=== PATIENT | male | born 1955 | race Two or more races ===

== ENCOUNTER 2018-04-05 07:18 | Outpatient (CLI) | payer OTHER ==
[~2018-04-05 07:18] MED LIST: CIPRO500 MG PO; COZAAR50 MG PO; FLAGYL500MG PO; NABUMETONE500 MG PO; PERCOCET 5/3251 TAB PO; PROTONIX40 MG PO; TRICOR145 MG PO
== END 2018-04-05 07:34 | disposition home or self-care (01) ==
LOC: LAB 07:18
DX: I11.9 Hypertensive heart disease without heart failure (principal); E78.00 Pure hypercholesterolemia, unspecified; E11.9 Type 2 diabetes mellitus without complications

== ENCOUNTER 2018-05-23 08:26 | Outpatient (CLI) | payer OTHER | END 2018-05-23 08:35 | disposition home or self-care (01) | LOC: LAB 08:26 | DX: R97.21 Rising PSA following treatment for malignant neoplasm of prostate (principal) ==

== ENCOUNTER → 2018-07-23 09:05 | Outpatient (CLI) | payer OTHER | END | disposition home or self-care (01) | LOC: LAB 09:05 | DX: I11.9 Hypertensive heart disease without heart failure (principal); E78.2 Mixed hyperlipidemia; E11.9 Type 2 diabetes mellitus without complications ==

== ENCOUNTER 2018-10-16 13:19 | Outpatient (CLI) | payer OTHER | END 2018-10-16 15:15 | disposition home or self-care (01) | LOC: SONOGRAMA 13:19 | DX: N20.0 Calculus of kidney (principal); R10.10 Upper abdominal pain, unspecified ==

== ENCOUNTER 2018-10-16 13:31 | Outpatient (CLI) | payer OTHER | END 2018-10-16 15:15 | disposition home or self-care (01) | LOC: LAB 13:31 | DX: D72.821 Monocytosis (symptomatic) (principal) ==

== ENCOUNTER 2019-04-08 06:59 | Outpatient (CLI) | payer OTHER | END 2019-04-08 07:08 | disposition home or self-care (01) | LOC: LAB 06:59 | DX: I11.9 Hypertensive heart disease without heart failure (principal); E78.00 Pure hypercholesterolemia, unspecified ==

== ENCOUNTER → 2019-05-12 07:25 | Outpatient (CLI) | payer OTHER | END | disposition home or self-care (01) | LOC: LAB 07:25 | DX: I10 Essential (primary) hypertension (principal); Z11.4 Encounter for screening for human immunodeficiency virus [HIV] ==

== ENCOUNTER 2019-08-22 11:03 | Outpatient (CLI) | payer OTHER | END 2019-08-22 15:00 | disposition home or self-care (01) | LOC: LAB 11:03 | DX: E83.51 Hypocalcemia (principal); E11.65 Type 2 diabetes mellitus with hyperglycemia ==

== ENCOUNTER 2019-08-27 13:10 | Outpatient (CLI) | payer OTHER | END 2019-08-27 13:16 | disposition home or self-care (01) | LOC: SONOGRAMA 13:10 | DX: M25.512 Pain in left shoulder (principal) ==

== ENCOUNTER 2019-10-21 07:43 | Outpatient (CLI) | payer OTHER | END 2019-10-21 18:00 | disposition home or self-care (01) | LOC: LAB 07:43 | DX: D72.821 Monocytosis (symptomatic) (principal) ==

== ENCOUNTER 2019-12-09 09:16 | Outpatient (CLI) | payer OTHER | END 2019-12-09 15:00 | disposition home or self-care (01) | LOC: LAB 09:16 | DX: E11.65 Type 2 diabetes mellitus with hyperglycemia (principal); D72.821 Monocytosis (symptomatic) ==

== ENCOUNTER → 2019-12-12 | Outpatient (CLI) | payer OTHER | END | disposition home or self-care (01) | LOC: LAB 08:51 | DX: R97.21 Rising PSA following treatment for malignant neoplasm of prostate (principal) ==

== ENCOUNTER → 2020-04-19 08:21 | Outpatient (CLI) | payer OTHER | END | disposition home or self-care (01) | LOC: LAB 08:21 | PROVIDERS: ATTEND Internal Medicine Endocrinology, Diabetes & Metabolism | DX: E78.00 Pure hypercholesterolemia, unspecified (principal); E11.65 Type 2 diabetes mellitus with hyperglycemia ==

== ENCOUNTER 2020-04-23 07:40 | Outpatient (CLI) | payer OTHER | END 2020-04-23 07:53 | disposition home or self-care (01) | LOC: LAB 07:40 | PROVIDERS: ATTEND Internal Medicine Cardiovascular Disease | DX: E03.8 Other specified hypothyroidism (principal); E11.9 Type 2 diabetes mellitus without complications; E78.00 Pure hypercholesterolemia, unspecified ==

== ENCOUNTER 2020-08-21 09:47 | Outpatient (CLI) | payer OTHER | END 2020-08-21 13:46 | disposition home or self-care (01) | LOC: LAB 09:47 | DX: B35.1 Tinea unguium (principal); L60.0 Ingrowing nail; L03.032 Cellulitis of left toe ==

== ENCOUNTER 2020-10-02 10:09 | Outpatient (CLI) | payer OTHER | END 2020-10-02 15:00 | disposition home or self-care (01) | LOC: LAB 10:09 | PROVIDERS: ATTEND Podiatrist Foot & Ankle Surgery | DX: B35.1 Tinea unguium (principal) ==

== ENCOUNTER 2020-10-11 07:36 | Outpatient (CLI) | payer OTHER | END 2020-10-11 07:49 | disposition home or self-care (01) | LOC: LAB 07:36 | PROVIDERS: ATTEND Podiatrist Foot & Ankle Surgery | DX: B35.1 Tinea unguium (principal) ==

== ENCOUNTER → 2020-10-20 09:08 | Outpatient (CLI) | payer OTHER | END | disposition home or self-care (01) | LOC: LAB 09:08 | PROVIDERS: ATTEND Internal Medicine Cardiovascular Disease | DX: I11.9 Hypertensive heart disease without heart failure (principal); E78.00 Pure hypercholesterolemia, unspecified; E11.9 Type 2 diabetes mellitus without complications ==

== ENCOUNTER 2020-10-25 06:53 | Outpatient (CLI) | payer OTHER | END 2020-10-25 15:00 | disposition home or self-care (01) | LOC: LAB 06:53 | PROVIDERS: ATTEND Internal Medicine Hematology & Oncology | DX: D72.821 Monocytosis (symptomatic) (principal) ==

== ENCOUNTER 2020-11-13 12:17 | Outpatient (CLI) | payer OTHER | END 2020-11-13 15:00 | disposition home or self-care (01) | LOC: LAB 12:17 | PROVIDERS: ATTEND Podiatrist Foot & Ankle Surgery | DX: B35.1 Tinea unguium (principal) ==

== ENCOUNTER 2020-12-20 10:13 | Outpatient (CLI) | payer OTHER | END 2020-12-20 10:24 | disposition home or self-care (01) | LOC: LAB 10:13 | PROVIDERS: ATTEND Urology | DX: R97.21 Rising PSA following treatment for malignant neoplasm of prostate (principal) ==

== ENCOUNTER 2021-01-24 09:04 | Outpatient (CLI) | payer OTHER | END 2021-01-24 09:13 | disposition home or self-care (01) | LOC: LAB 09:04 | PROVIDERS: ATTEND Internal Medicine Cardiovascular Disease | DX: I11.9 Hypertensive heart disease without heart failure (principal); E78.1 Pure hyperglyceridemia; E11.9 Type 2 diabetes mellitus without complications ==

== ENCOUNTER 2021-06-21 13:57 | Outpatient (CLI) | payer OTHER | END 2021-06-21 14:18 | disposition home or self-care (01) | LOC: MRI 13:57 | PROVIDERS: ATTEND Orthopaedic Surgery | DX: M54.2 Cervicalgia (principal); M54.5 Low back pain | CPT/HCPCS: 72141; 72148 ==

== ENCOUNTER 2021-07-08 08:24 | Outpatient (CLI) | payer OTHER | END 2021-07-08 08:29 | disposition home or self-care (01) | LOC: SONOGRAMA 08:24 | PROVIDERS: ATTEND Physical Medicine & Rehabilitation | DX: S46.301A Unspecified injury of muscle, fascia and tendon of triceps, right arm, initial encounter (principal) ==

== ENCOUNTER 2021-07-22 07:14 | Outpatient (CLI) | payer OTHER | END 2021-07-22 07:27 | disposition home or self-care (01) | LOC: LAB 07:14 | PROVIDERS: ATTEND Internal Medicine Cardiovascular Disease | DX: E11.9 Type 2 diabetes mellitus without complications (principal); E78.1 Pure hyperglyceridemia; D11.9 Benign neoplasm of major salivary gland, unspecified ==

== ENCOUNTER 2021-08-02 12:47 | Outpatient (CLI) | payer OTHER | END 2021-08-02 13:01 | disposition home or self-care (01) | LOC: MRI 12:47 | DX: M48.02 Spinal stenosis, cervical region (principal); M54.12 Radiculopathy, cervical region | CPT/HCPCS: 72141 ==

== ENCOUNTER 2021-11-08 07:26 | Outpatient (CLI) | payer OTHER | END 2021-11-08 07:32 | disposition home or self-care (01) | LOC: LAB 07:26 | DX: I10 Essential (primary) hypertension (principal); D72.821 Monocytosis (symptomatic) ==

== ENCOUNTER 2021-12-06 09:45 | Outpatient (CLI) | payer OTHER | END 2021-12-06 09:55 | disposition home or self-care (01) | LOC: LAB 09:45 | PROVIDERS: ATTEND Internal Medicine Cardiovascular Disease | DX: I11.9 Hypertensive heart disease without heart failure (principal); E78.1 Pure hyperglyceridemia; E11.9 Type 2 diabetes mellitus without complications ==

== ENCOUNTER 2022-01-04 10:37 | Outpatient (CLI) | payer OTHER | END 2022-01-04 15:13 | disposition home or self-care (01) | LOC: LAB 10:37 | PROVIDERS: ATTEND Urology | DX: R97.21 Rising PSA following treatment for malignant neoplasm of prostate (principal) ==

== ENCOUNTER 2022-02-01 06:36 | Outpatient (CLI) | payer OTHER | END 2022-02-01 06:47 | disposition home or self-care (01) | LOC: LAB 06:36 | PROVIDERS: ATTEND Internal Medicine Cardiovascular Disease | DX: E78.1 Pure hyperglyceridemia (principal); E11.9 Type 2 diabetes mellitus without complications; E03.2 Hypothyroidism due to medicaments and other exogenous substances ==

== ENCOUNTER 2022-09-09 07:44 | Outpatient (CLI) | payer OTHER | END 2022-09-09 07:45 | disposition home or self-care (01) | LOC: LAB 07:44 | PROVIDERS: ATTEND Internal Medicine Cardiovascular Disease | DX: I11.9 Hypertensive heart disease without heart failure (principal); E78.1 Pure hyperglyceridemia ==

== ENCOUNTER → 2023-01-09 10:02 | Outpatient (CLI) | payer OTHER | END | disposition home or self-care (01) | LOC: LAB 10:02 | PROVIDERS: ATTEND Internal Medicine Cardiovascular Disease | DX: I11.9 Hypertensive heart disease without heart failure (principal); E11.9 Type 2 diabetes mellitus without complications; N39.0 Urinary tract infection, site not specified ==

== ENCOUNTER 2023-03-03 09:01 | Outpatient (CLI) | payer OTHER | END 2023-03-03 09:10 | disposition home or self-care (01) | LOC: LAB 09:01 | PROVIDERS: ATTEND Urology | DX: R97.21 Rising PSA following treatment for malignant neoplasm of prostate (principal) ==

== ENCOUNTER 2023-07-03 06:32 | Outpatient (CLI) | payer OTHER | END 2023-07-03 06:34 | disposition home or self-care (01) | LOC: LAB 06:32 | PROVIDERS: ATTEND Internal Medicine Cardiovascular Disease | DX: I11.9 Hypertensive heart disease without heart failure (principal); E78.1 Pure hyperglyceridemia; E11.9 Type 2 diabetes mellitus without complications ==

== ENCOUNTER → 2023-09-24 06:55 | Outpatient (CLI) | payer OTHER ==
[2023-09-24 07:46] LABS: HEMATOCRIT 41.3 % (39.0-48.0); MEAN CELL VOLUME 90.8 fL (80.0-100.00); MEAN CORPUSCULAR HEMOGLOBIN 30.8 pg (27.00-32.0); MEAN CORPUSCULAR HGB CONC 33.9 g/dl (32.0-36.0); PLATELET COUNT 340 K/uL (150-450); RED BLOOD COUNT 4.55 M/uL (4.00-6.00); RED CELL DISTRIBUTION WIDTH 13.5 % (11.5-14.5)
[2023-09-24 08:15] LABS: ALBUMIN 3.2 gm/dL (3.4-5.0); BILIRUBIN TOTAL 0.4 mg/dL (0.3-1.2); CALCIUM 8.5 mg/dL (8.5-10.1); CHOL HDL RATIO 2.5 (0-5.0); CREATININE SERUM 0.71 mg/dL (0.70-1.30); GLOBULINA 3.4 G/DL (2.4-3.5); POTASSIUM 3.69 mEq/L (3.5-5.1); TOTAL PROTEIN 6.6 gm/dL (6.4-8.2)
== END | disposition home or self-care (01) ==
LOC: LAB 06:55
PROVIDERS: ATTEND Internal Medicine
DX: E11.65 Type 2 diabetes mellitus with hyperglycemia (principal); I10 Essential (primary) hypertension; E78.5 Hyperlipidemia, unspecified

== ENCOUNTER 2023-12-29 07:53 | Outpatient (CLI) | payer OTHER ==
[2023-12-29 09:57] LABS: HEMATOCRIT 42.6 % (39.0-48.0); HEMOGLOBIN 14.1 g/dL (13-16.00); MEAN CELL VOLUME 92.3 fL (80.0-100.00); MEAN CORPUSCULAR HEMOGLOBIN 30.6 pg (27.00-32.0); MEAN CORPUSCULAR HGB CONC 33.2 g/dl (32.0-36.0); PLATELET COUNT 309 K/uL (150-450); RED BLOOD COUNT 4.61 M/uL (4.00-6.00); RED CELL DISTRIBUTION WIDTH 13.6 % (11.5-14.5)
[2023-12-29 09:58] LABS: PH,URINE 5.5 (5.0-8.0); URINE APPEARANCE Clear; URINE BILIRRUBIN Negative (NEGATIVE); URINE BLOOD Negative; URINE COLOR Yellow; URINE GLUCOSE Negative (NEGATIVE); URINE LEUKOCYTE Negative; URINE NITRATE Negative; URINE PROTEIN Negative (NEGATIVE)
[2023-12-29 10:00] LABS: URINE BACTERIA 7.5 uL (0.0-1933); URINE EPITHELIAL CELLS 1.5 uL (0.0-38.8); URINE RBC 3.4 uL (0.0-20.8)
[2023-12-29 10:20] LABS: URINE WBC 1.6 uL (0.0-23.2)
[2023-12-29 10:33] LABS: ALBUMIN 3.5 gm/dL (3.4-5.0); BILIRUBIN TOTAL 0.36 mg/dL (0.3-1.2); CALCIUM 8.8 mg/dL (8.5-10.1); CHOL HDL RATIO 2.7 (0-5.0); CREATININE SERUM 0.76 mg/dL (0.70-1.30); GFR 101.69; GLOBULINA 2.9 G/DL (2.4-3.5); POTASSIUM 3.88 mEq/L (3.5-5.1); PROSTATIC SPECIFIC ANTIGEN 1.38 NG/ML (0.010-4.00); TOTAL PROTEIN 6.4 gm/dL (6.4-8.2); TSH 2.42 uIU/mL (0.358-3.74)
== END 2023-12-29 08:00 | disposition home or self-care (01) ==
LOC: LAB 07:53
PROVIDERS: ATTEND Internal Medicine Cardiovascular Disease
DX: E11.9 Type 2 diabetes mellitus without complications (principal); E78.2 Mixed hyperlipidemia; E03.9 Hypothyroidism, unspecified; N40.0 Benign prostatic hyperplasia without lower urinary tract symptoms; I10 Essential (primary) hypertension; E78.5 Hyperlipidemia, unspecified

== ENCOUNTER → 2024-01-21 07:37 | Outpatient (CLI) | payer OTHER ==
[2024-01-21 08:18] LABS: HEMATOCRIT 41.5 % (39.0-48.0); HEMOGLOBIN 14.5 g/dL (13-16.00); MEAN CELL VOLUME 91.6 fL (80.0-100.00); MEAN CORPUSCULAR HEMOGLOBIN 31.9 pg (27.00-32.0); MEAN CORPUSCULAR HGB CONC 34.9 g/dl (32.0-36.0); PLATELET COUNT 295 K/uL (150-450); RED BLOOD COUNT 4.54 M/uL (4.00-6.00); RED CELL DISTRIBUTION WIDTH 13.9 % (11.5-14.5)
[2024-01-21 08:34] LABS: URINE APPEARANCE Clear; URINE BILIRRUBIN Negative (NEGATIVE); URINE BLOOD Negative; URINE COLOR Yellow; URINE GLUCOSE Negative (NEGATIVE); URINE LEUKOCYTE Negative; URINE NITRATE Negative; URINE PROTEIN Negative (NEGATIVE)
[2024-01-21 08:38] LABS: URINE BACTERIA 8.8 uL (0.0-1933); URINE EPITHELIAL CELLS 2.7 uL (0.0-38.8); URINE RBC 10.4 uL (0.0-20.8); URINE WBC 7.1 uL (0.0-23.2)
[2024-01-21 09:10] LABS: ALBUMIN 3.8 gm/dL (3.4-5.0); BILIRUBIN TOTAL 0.46 mg/dL (0.3-1.2); CALCIUM 9.2 mg/dL (8.5-10.1); CREATININE SERUM 0.74 mg/dL (0.70-1.30); GFR 104.87; GLOBULINA 2.7 G/DL (2.4-3.5); PHOSPHOROUS 2.9 mg/dL (2.5-4.9); POTASSIUM 3.82 mEq/L (3.5-5.1); PROSTATIC SPECIFIC ANTIGEN 1.64 NG/ML (0.010-4.00); T4 TOTAL 8.81 UG/DL (4.5-12.1); TOTAL PROTEIN 6.5 gm/dL (6.4-8.2); TSH 1.89 uIU/mL (0.358-3.74)
== END | disposition home or self-care (01) ==
LOC: LAB 07:37
PROVIDERS: ATTEND Internal Medicine
DX: I10 Essential (primary) hypertension (principal); Z01.810 Encounter for preprocedural cardiovascular examination; E03.9 Hypothyroidism, unspecified; E78.9 Disorder of lipoprotein metabolism, unspecified; E55.9 Vitamin D deficiency, unspecified; E11.51 Type 2 diabetes mellitus with diabetic peripheral angiopathy without gangrene; E11.9 Type 2 diabetes mellitus without complications; E66.8 Other obesity; Z12.11 Encounter for screening for malignant neoplasm of colon; M89.9 Disorder of bone, unspecified; N40.0 Benign prostatic hyperplasia without lower urinary tract symptoms

== ENCOUNTER 2024-01-23 11:22 | Outpatient (CLI) | payer OTHER ==
[2024-01-23 12:12] LABS: ob NEGATIVE (NEGATIVE)
== END 2024-01-23 13:15 | disposition home or self-care (01) ==
LOC: LAB 11:22
PROVIDERS: ATTEND Internal Medicine
DX: I10 Essential (primary) hypertension (principal); Z01.810 Encounter for preprocedural cardiovascular examination; E03.9 Hypothyroidism, unspecified; E78.9 Disorder of lipoprotein metabolism, unspecified; E55.9 Vitamin D deficiency, unspecified; E11.51 Type 2 diabetes mellitus with diabetic peripheral angiopathy without gangrene; E11.9 Type 2 diabetes mellitus without complications; E66.8 Other obesity; Z12.11 Encounter for screening for malignant neoplasm of colon; M89.9 Disorder of bone, unspecified; Z12.31 Encounter for screening mammogram for malignant neoplasm of breast; Z13.820 Encounter for screening for osteoporosis; N40.0 Benign prostatic hyperplasia without lower urinary tract symptoms

== ENCOUNTER 2024-01-23 11:32 | Outpatient (CLI) | payer OTHER | END 2024-01-23 12:00 | disposition home or self-care (01) | LOC: RAD 11:32 | PROVIDERS: ATTEND Internal Medicine | DX: Z01.810 Encounter for preprocedural cardiovascular examination (principal) ==

== ENCOUNTER 2024-07-19 13:28 | Outpatient (CLI) | payer OTHER ==
[2024-07-19 13:52] LABS: URINE APPEARANCE Clear; URINE BILIRRUBIN Negative (NEGATIVE); URINE BLOOD Negative; URINE COLOR Yellow; URINE GLUCOSE Negative (NEGATIVE); URINE KETONE Trace (NEGATIVE); URINE LEUKOCYTE Negative; URINE NITRATE Negative; URINE PROTEIN Trace (NEGATIVE); URINE UROBILINOGEN 0.2 E.U./dl
[2024-07-19 13:53] LABS: URINE EPITHELIAL CELLS 5.7 uL (0.0-38.8); URINE RBC 11.1 uL (0.0-20.8); URINE WBC 8.4 uL (0.0-23.2)
[2024-07-19 14:06] LABS: URINE BACTERIA 3.7 uL (0.0-1933); URINE CAST 0.61 uL (0.0-1.40)
== END 2024-07-19 13:35 | disposition home or self-care (01) ==
LOC: LAB 13:28
PROVIDERS: ATTEND Urology
DX: R97.21 Rising PSA following treatment for malignant neoplasm of prostate (principal)

== ENCOUNTER 2024-07-28 07:07 | Outpatient (CLI) | payer OTHER ==
[2024-07-28 07:38] LABS: PH,URINE 5.5 (5.0-8.0); URINE APPEARANCE Clear; URINE BILIRRUBIN Negative (NEGATIVE); URINE BLOOD Negative; URINE COLOR Yellow; URINE GLUCOSE Negative (NEGATIVE); URINE KETONE Negative (NEGATIVE); URINE LEUKOCYTE Negative; URINE NITRATE Negative; URINE PROTEIN Negative (NEGATIVE); URINE UROBILINOGEN 0.2 E.U./dl
[2024-07-28 07:40] LABS: URINE BACTERIA 13.8 uL (0.0-1933); URINE RBC 4.7 uL (0.0-20.8); URINE WBC 6.3 uL (0.0-23.2)
[2024-07-28 08:00] LABS: HEMATOCRIT 43.4 % (39.0-48.0); HEMOGLOBIN 14.6 g/dL (13-16.00); MEAN CELL VOLUME 91.8 fL (80.0-100.00); MEAN CORPUSCULAR HEMOGLOBIN 30.8 pg (27.00-32.0); MEAN CORPUSCULAR HGB CONC 33.6 g/dl (32.0-36.0); PLATELET COUNT 318 K/uL (150-450); RED BLOOD COUNT 4.72 M/uL (4.00-6.00); RED CELL DISTRIBUTION WIDTH 13.4 % (11.5-14.5)
[2024-07-28 08:42] LABS: ALBUMIN 3.4 gm/dL (3.4-5.0); BILIRUBIN TOTAL 0.4 mg/dL (0.3-1.2); CALCIUM 8.7 mg/dL (8.5-10.1); CHOL HDL RATIO 3.8 (0-5.0); CREATININE SERUM 0.75 mg/dL (0.70-1.30); GFR 102.96; POTASSIUM 4.19 mEq/L (3.5-5.1); TOTAL PROTEIN 6.4 gm/dL (6.4-8.2)
== END 2024-07-28 07:13 | disposition home or self-care (01) ==
LOC: LAB 07:07
PROVIDERS: ATTEND Internal Medicine
DX: E78.9 Disorder of lipoprotein metabolism, unspecified (principal); I10 Essential (primary) hypertension; E55.9 Vitamin D deficiency, unspecified; E11.51 Type 2 diabetes mellitus with diabetic peripheral angiopathy without gangrene; E11.9 Type 2 diabetes mellitus without complications; Z12.11 Encounter for screening for malignant neoplasm of colon; M89.9 Disorder of bone, unspecified; Z12.31 Encounter for screening mammogram for malignant neoplasm of breast; Z13.820 Encounter for screening for osteoporosis; R73.09 Other abnormal glucose; R73.01 Impaired fasting glucose

== ENCOUNTER → 2024-10-24 08:02 | Outpatient (CLI) | payer OTHER ==
[2024-10-24 09:05] LABS: HEMOGLOBIN 14.5 g/dL (13-16.00); MEAN CELL VOLUME 90.9 fL (80.0-100.00); MEAN CORPUSCULAR HEMOGLOBIN 31.4 pg (27.00-32.0); MEAN CORPUSCULAR HGB CONC 34.5 g/dl (32.0-36.0); PLATELET COUNT 301 K/uL (150-450); RED BLOOD COUNT 4.62 M/uL (4.00-6.00)
[2024-10-24 09:12] LABS: PH,URINE 5.5 (5.0-8.0); URINE APPEARANCE Clear; URINE BILIRRUBIN Negative (NEGATIVE); URINE BLOOD Negative; URINE COLOR Yellow; URINE GLUCOSE Negative (NEGATIVE); URINE KETONE Negative (NEGATIVE); URINE LEUKOCYTE Negative; URINE NITRATE Negative; URINE PROTEIN Negative (NEGATIVE); URINE UROBILINOGEN 0.2 E.U./dl
[2024-10-24 09:17] LABS: URINE BACTERIA 35.4 uL (0.0-1933); URINE EPITHELIAL CELLS 2.2 uL (0.0-38.8); URINE RBC 4.1 uL (0.0-20.8); URINE WBC 6.7 uL (0.0-23.2)
[2024-10-24 09:22] LABS: URINE CAST 0.14 uL (0.0-1.40)
[2024-10-24 10:22] LABS: ALBUMIN 3.5 gm/dL (3.4-5.0); BILIRUBIN TOTAL 0.44 mg/dL (0.3-1.2); CALCIUM 8.9 mg/dL (8.5-10.1); CHOL HDL RATIO 2.2 (0-5.0); CREATININE SERUM 0.77 mg/dL (0.70-1.30); GFR 99.88; POTASSIUM 3.97 mEq/L (3.5-5.1); T4 FREE 0.94 NG/ML (0.76-1.46); TOTAL PROTEIN 6.5 gm/dL (6.4-8.2); TSH 1.7 uIU/mL (0.358-3.74)
== END | disposition home or self-care (01) ==
LOC: LAB 08:02
PROVIDERS: ATTEND Internal Medicine
DX: E11.65 Type 2 diabetes mellitus with hyperglycemia (principal); E03.9 Hypothyroidism, unspecified; E78.5 Hyperlipidemia, unspecified; I10 Essential (primary) hypertension; N30.90 Cystitis, unspecified without hematuria; E11.21 Type 2 diabetes mellitus with diabetic nephropathy

== ENCOUNTER → 2024-12-02 07:04 | Outpatient (CLI) | payer OTHER ==
[2024-12-02 07:26] LABS: HEMATOCRIT 42.1 % (39.0-48.0); HEMOGLOBIN 14.4 g/dL (13-16.00); MEAN CELL VOLUME 90.5 fL (80.0-100.00); MEAN CORPUSCULAR HEMOGLOBIN 30.9 pg (27.00-32.0); MEAN CORPUSCULAR HGB CONC 34.2 g/dl (32.0-36.0); PLATELET COUNT 275 K/uL (150-450); RED BLOOD COUNT 4.66 M/uL (4.00-6.00); RED CELL DISTRIBUTION WIDTH 13.7 % (11.5-14.5)
[2024-12-02 07:54] LABS: URINE APPEARANCE Clear; URINE BILIRRUBIN Negative (NEGATIVE); URINE BLOOD Negative; URINE COLOR Yellow; URINE GLUCOSE Negative (NEGATIVE); URINE KETONE Trace (NEGATIVE); URINE LEUKOCYTE Negative; URINE NITRATE Negative; URINE PROTEIN Negative (NEGATIVE)
[2024-12-02 07:58] LABS: URINE BACTERIA 48.9 uL (0.0-1933); URINE EPITHELIAL CELLS 10.2 uL (0.0-38.8); URINE RBC 5.7 uL (0.0-20.8); URINE WBC 7.7 uL (0.0-23.2)
[2024-12-02 08:21] LABS: ALBUMIN 3.6 gm/dL (3.4-5.0); BILIRUBIN TOTAL 0.49 mg/dL (0.3-1.2); CALCIUM 8.8 mg/dL (8.5-10.1); CHOL HDL RATIO 2.1 (0-5.0); CREATININE SERUM 0.73 mg/dL (0.70-1.30); GFR 106.22; GLOBULINA 2.7 G/DL (2.4-3.5); POTASSIUM 3.94 mEq/L (3.5-5.1); TOTAL PROTEIN 6.3 gm/dL (6.4-8.2)
[2024-12-02 08:25] LABS: URINE CAST 0.29 uL (0.0-1.40)
== END | disposition home or self-care (01) ==
LOC: LAB 07:04
PROVIDERS: ATTEND Internal Medicine
DX: E78.9 Disorder of lipoprotein metabolism, unspecified (principal); I10 Essential (primary) hypertension; E55.9 Vitamin D deficiency, unspecified; E11.51 Type 2 diabetes mellitus with diabetic peripheral angiopathy without gangrene; E11.9 Type 2 diabetes mellitus without complications; Z12.11 Encounter for screening for malignant neoplasm of colon; M89.9 Disorder of bone, unspecified; Z12.31 Encounter for screening mammogram for malignant neoplasm of breast; Z13.820 Encounter for screening for osteoporosis; R73.09 Other abnormal glucose; R73.01 Impaired fasting glucose

== ENCOUNTER 2025-03-16 09:42 | Outpatient (CLI) | payer OTHER ==
[2025-03-16 10:50] LABS: PH,URINE 5.5 (5.0-8.0); URINE APPEARANCE Clear; URINE BILIRRUBIN Negative (NEGATIVE); URINE BLOOD Negative; URINE COLOR Yellow; URINE GLUCOSE Negative (NEGATIVE); URINE KETONE Trace (NEGATIVE); URINE LEUKOCYTE Negative; URINE NITRATE Negative; URINE PROTEIN Negative (NEGATIVE); URINE UROBILINOGEN 0.2 E.U./dl
[2025-03-16 10:56] LABS: URINE BACTERIA 6.1 uL (0.0-1933); URINE EPITHELIAL CELLS 2.2 uL (0.0-38.8); URINE RBC 5.3 uL (0.0-20.8); URINE WBC 4.7 uL (0.0-23.2)
[2025-03-16 10:57] LABS: HEMOGLOBIN 14.8 g/dL (13-16.00); MEAN CELL VOLUME 91.6 fL (80.0-100.00); MEAN CORPUSCULAR HEMOGLOBIN 30.7 pg (27.00-32.0); MEAN CORPUSCULAR HGB CONC 33.6 g/dl (32.0-36.0); PLATELET COUNT 295 K/uL (150-450); RED BLOOD COUNT 4.81 M/uL (4.00-6.00); RED CELL DISTRIBUTION WIDTH 13.6 % (11.5-14.5)
[2025-03-16 11:05] LABS: URINE CAST 0.44 uL (0.0-1.40)
[2025-03-16 11:49] LABS: ALBUMIN 3.5 gm/dL (3.4-5.0); BILIRUBIN TOTAL 0.37 mg/dL (0.3-1.2); CALCIUM 8.9 mg/dL (8.5-10.1); CHOL HDL RATIO 2.9 (0-5.0); CREATININE SERUM 0.74 mg/dL (0.70-1.30); GFR 104.56; GLOBULINA 3.1 G/DL (2.4-3.5); POTASSIUM 4.19 mEq/L (3.5-5.1); TOTAL PROTEIN 6.6 gm/dL (6.4-8.2)
== END 2025-03-16 09:56 | disposition home or self-care (01) ==
LOC: LAB 09:42
PROVIDERS: ATTEND Internal Medicine
DX: I10 Essential (primary) hypertension (principal); E78.9 Disorder of lipoprotein metabolism, unspecified; E55.9 Vitamin D deficiency, unspecified; E11.51 Type 2 diabetes mellitus with diabetic peripheral angiopathy without gangrene; E11.9 Type 2 diabetes mellitus without complications; Z12.11 Encounter for screening for malignant neoplasm of colon; M89.9 Disorder of bone, unspecified; Z12.31 Encounter for screening mammogram for malignant neoplasm of breast; Z13.820 Encounter for screening for osteoporosis; R73.09 Other abnormal glucose; R73.01 Impaired fasting glucose

== ENCOUNTER 2025-03-17 10:31 | Outpatient (CLI) | payer OTHER ==
[2025-03-17 12:37] LABS: ob NEGATIVE (NEGATIVE)
== END 2025-03-17 15:26 | disposition home or self-care (01) ==
LOC: LAB 10:31
PROVIDERS: ATTEND Internal Medicine
DX: E78.9 Disorder of lipoprotein metabolism, unspecified (principal); I10 Essential (primary) hypertension; E55.9 Vitamin D deficiency, unspecified; E11.51 Type 2 diabetes mellitus with diabetic peripheral angiopathy without gangrene; E11.9 Type 2 diabetes mellitus without complications; Z12.11 Encounter for screening for malignant neoplasm of colon; M89.9 Disorder of bone, unspecified; Z12.31 Encounter for screening mammogram for malignant neoplasm of breast; Z13.820 Encounter for screening for osteoporosis; R73.09 Other abnormal glucose; R73.01 Impaired fasting glucose

== ENCOUNTER → 2025-04-22 08:11 | Outpatient (CLI) | payer OTHER ==
[2025-04-22 08:41] LABS: PH,URINE 5.5 (5.0-8.0); URINE APPEARANCE Clear; URINE BILIRRUBIN Negative (NEGATIVE); URINE BLOOD Negative; URINE COLOR Yellow; URINE GLUCOSE Negative (NEGATIVE); URINE KETONE Negative (NEGATIVE); URINE LEUKOCYTE Negative; URINE NITRATE Negative; URINE PROTEIN Negative (NEGATIVE); URINE UROBILINOGEN 0.2 E.U./dl
[2025-04-22 08:45] LABS: URINE BACTERIA 6.1 uL (0.0-1933); URINE RBC 3.6 uL (0.0-20.8); URINE WBC 2.3 uL (0.0-23.2)
[2025-04-22 08:46] LABS: BASO % 0.3 % (0.1-1.2); EOS # 0.19 (0.04-0.54); EOS % 3.3 % (0.7-7.0); HEMATOCRIT 42.5 % (40.1-51.0); HEMOGLOBIN 14.2 g/dL (13.7-17.5); LYMPH # 1.21 (1.18-3.74); LYMPH % 20.9 % (19.3-53.1); MEAN CORPUSCULAR HEMOGLOBIN 29.7 pg (25.6-32.2); MONO # 0.73 (0.24-0.82); NEUT # 3.64 (1.56-6.13); NEUT % 62.7 % (34.0-71.1); PLATELET COUNT 297 K/uL (163-369); RED BLOOD COUNT 4.78 M/uL (4.63-6.08); RED CELL DISTRIBUTION WIDTH 12.9 % (11.6-14.4)
[2025-04-22 08:47] LABS: MONO % 12.6 % (4.7-12.5)
[2025-04-22 09:00] LABS: URINE EPITHELIAL CELLS 0.9 uL (0.0-38.8)
[2025-04-22 13:08] LABS: CALCIUM 8.9 mg/dL (8.5-10.1); CHOL HDL RATIO 2.8 (0-5.0); CREATININE SERUM 0.74 mg/dL (0.70-1.30); GFR 104.56; POTASSIUM 3.94 mEq/L (3.5-5.1); PROSTATIC SPECIFIC ANTIGEN 2.52 NG/ML (0.010-4.00)
== END | disposition home or self-care (01) ==
LOC: LAB 08:11
PROVIDERS: ATTEND Internal Medicine Cardiovascular Disease
DX: R97.21 Rising PSA following treatment for malignant neoplasm of prostate (principal); E11.9 Type 2 diabetes mellitus without complications; E78.9 Disorder of lipoprotein metabolism, unspecified; E03.9 Hypothyroidism, unspecified

== ENCOUNTER 2025-06-15 09:06 | Outpatient (CLI) | payer OTHER ==
[2025-06-15 09:55] LABS: URINE APPEARANCE Clear; URINE BILIRRUBIN Negative (NEGATIVE); URINE BLOOD Negative; URINE COLOR Yellow; URINE GLUCOSE Negative (NEGATIVE); URINE KETONE Trace (NEGATIVE); URINE LEUKOCYTE Negative; URINE NITRATE Negative; URINE PROTEIN Negative (NEGATIVE); URINE UROBILINOGEN 0.2 E.U./dl
[2025-06-15 09:57] LABS: BASO % 0.4 % (0.1-1.2); EOS # 0.11 (0.04-0.54); EOS % 2.0 % (0.7-7.0); LYMPH # 1.21 (1.18-3.74); LYMPH % 21.8 % (19.3-53.1); MEAN PLATELET VOLUME 8.70 fl (9.4-12.4); MONO # 0.66 (0.24-0.82); MONO % 11.9 % (4.7-12.5); NEUT # 3.53 (1.56-6.13); NEUT % 63.5 % (34.0-71.1); RED CELL DISTRIBUTION WIDTH 13.0 % (11.6-14.4); URINE BACTERIA 13.1 uL (0.0-1933); URINE EPITHELIAL CELLS 2.6 uL (0.0-38.8); URINE RBC 3.3 uL (0.0-20.8); URINE WBC 6.6 uL (0.0-23.2)
[2025-06-15 10:06] LABS: URINE CAST 0.29 uL (0.0-1.40)
[2025-06-15 11:29] LABS: ALT/SGPT 27.0 U/L (12-78); AST/SGOT 15.0 U/L (15-37); BILIRUBIN TOTAL 0.47 mg/dL (0.3-1.2); BUN CREA RATIO 17.0 (7.0-25.0); CHOL HDL RATIO 2.5 (0-5.0); CREATININE SERUM 0.76 mg/dL (0.70-1.30); GFR 101.39; GLOBULINA 2.9 G/DL (2.4-3.5); GLUCOSE FASTING 92.0 mg/dL (65-100); HDL 52.0 mg/dl (40-60); LDL 54.0 mg/dl (0-130); OSMOLALITY SERUM 288.0 MOSM/KG (275-295); VLDL 22.0 (0-39)
== END 2025-06-15 09:12 | disposition home or self-care (01) ==
LOC: LAB 09:06
PROVIDERS: ATTEND Internal Medicine
DX: I10 Essential (primary) hypertension (principal); E78.9 Disorder of lipoprotein metabolism, unspecified; E55.9 Vitamin D deficiency, unspecified; E11.9 Type 2 diabetes mellitus without complications; Z12.11 Encounter for screening for malignant neoplasm of colon; M89.9 Disorder of bone, unspecified; Z12.31 Encounter for screening mammogram for malignant neoplasm of breast; Z13.820 Encounter for screening for osteoporosis

== ENCOUNTER 2025-07-28 08:39 | Outpatient (CLI) | payer OTHER | END 2025-07-28 15:09 | disposition home or self-care (01) | LOC: LAB 08:39 | PROVIDERS: ATTEND Urology | DX: N40.0 Benign prostatic hyperplasia without lower urinary tract symptoms (principal) ==

== ENCOUNTER 2025-09-17 10:31 | Outpatient (CLI) | payer OTHER ==
[2025-09-17 11:17] LABS: BASO % 0.4 % (0.1-1.2); EOS # 0.13 (0.04-0.54); EOS % 2.6 % (0.7-7.0); LYMPH # 1.16 (1.18-3.74); LYMPH % 23.0 % (19.3-53.1); MEAN PLATELET VOLUME 8.70 fl (9.4-12.4); MONO # 0.60 (0.24-0.82); MONO % 11.9 % (4.7-12.5); NEUT # 3.12 (1.56-6.13); NEUT % 61.7 % (34.0-71.1); RED CELL DISTRIBUTION WIDTH 12.6 % (11.6-14.4)
[2025-09-17 11:24] LABS: URINE APPEARANCE Clear; URINE BILIRRUBIN Negative (NEGATIVE); URINE BLOOD Negative; URINE COLOR Yellow; URINE GLUCOSE Negative (NEGATIVE); URINE KETONE Trace (NEGATIVE); URINE LEUKOCYTE Negative; URINE NITRATE Negative; URINE PROTEIN Trace (NEGATIVE); URINE UROBILINOGEN 0.2 E.U./dl
[2025-09-17 11:28] LABS: URINE BACTERIA 5.9 uL (0.0-1933); URINE EPITHELIAL CELLS 1.9 uL (0.0-38.8); URINE RBC 4.6 uL (0.0-20.8); URINE WBC 2.7 uL (0.0-23.2)
[2025-09-17 11:32] LABS: URINE CAST 0.14 uL (0.0-1.40)
[2025-09-17 11:52] LABS: BUN CREA RATIO 22.0 (7.0-25.0); CHOL HDL RATIO 3.1 (0-5.0); CREATININE SERUM 0.74 mg/dL (0.70-1.30); GFR 104.26; GLUCOSE FASTING 115.0 mg/dL (65-100); HDL 52.0 mg/dl (40-60); LDL 93.0 mg/dl (0-130); OSMOLALITY SERUM 289.0 MOSM/KG (275-295); PROSTATIC SPECIFIC ANTIGEN 1.7 NG/ML (0.010-4.00); VLDL 17.0 (0-39)
== END 2025-09-17 23:00 | disposition home or self-care (01) ==
LOC: LAB 10:31
PROVIDERS: ATTEND Internal Medicine
DX: E78.9 Disorder of lipoprotein metabolism, unspecified (principal); I10 Essential (primary) hypertension; E55.9 Vitamin D deficiency, unspecified; E11.9 Type 2 diabetes mellitus without complications; Z12.11 Encounter for screening for malignant neoplasm of colon; M89.9 Disorder of bone, unspecified; Z12.31 Encounter for screening mammogram for malignant neoplasm of breast; Z13.820 Encounter for screening for osteoporosis; N41.0 Acute prostatitis; N41.9 Inflammatory disease of prostate, unspecified